=== PATIENT | male | born 1975 | race Caucasian/White ===

== ENCOUNTER 2020-11-28 22:14 | Inpatient (IN) | payer SELFPAY ==
[2020-11-28] MEDS ORDERED: Ketorolac 60 MG/2 ML SDV IM ONE (22:26)
[2020-11-28] MEDS ORDERED: Sodium Chloride 0.9% 10 ML Syringe FLUSH PRN (22:29)
[2020-11-28] MEDS ORDERED: Ketorolac 30 MG/ML SDV IVPUSH ONE (22:30)
--- NOTE | 2020-11-28 22:35 | EDM.PDOC ---
ED HPI GENERAL MEDICAL PROBLEM - General Chief Complaint: ENT Problem Stated Complaint: SORE THROAT/SWOLLEN/GOES INTO EARS Time Seen by Provider: 11/28/20 22:16 Source of Information: Reports: Patient, RN Notes Reviewed History Limitations: Reports: No Limitations - History of Present Illness INITIAL COMMENTS - FREE TEXT/NARRATIVE: Patient is a 45-year-old male presenting to the emergency department with complaints of severe throat pain. He states symptoms began yesterday and has been getting progressively worse since that time. He complains of inability to swallow except for small amounts of liquids. Pain is worse on the right than the left and travels into his right ear. He does still have his tonsils. Denies any nausea vomiting or diarrhea. He has had a fever. States it was 100.0 at home. He has not taken anything for pain. Right Throat Pain Score (Numeric/FACES): 9 - Related Data Allergies Allergy/AdvReac Type Severity Reaction Status Date / Time No Known Allergies Allergy Verified 11/29/20 01:47 Home Meds: Home Meds . [No Known Home Meds] 11/28/20 [History] Past Medical History HEENT History: Reports: Impaired Vision Cardiovascular History: Reports: None Respiratory History: Reports: None Gastrointestinal History: Reports: GERD Genitourinary History: Reports: None Musculoskeletal History: Reports: None Neurological History: Reports: Concussion, Other (See Below) Other Neuro History: tension headaches Psychiatric History: Reports: None Endocrine/Metabolic History: Reports: None Hematologic History: Reports: None Immunologic History: Reports: None Oncologic (Cancer) History: Reports: Malignant Melanoma Dermatologic History: Reports: None - Infectious Disease History Infectious Disease History: Reports: Chicken Pox, Influenza - Past Surgical History HEENT Surgical History: Reports: Oral Surgery GI Surgical History: Reports: None Social & Family History - Family History Family Medical History: No Pertinent Family History - Tobacco Use Tobacco Use Status *Q: Current Every Day Tobacco User Years of Tobacco use: 20 Packs/Tins Daily: 1 - Caffeine Use Caffeine Use: Reports: Energy Drinks - Recreational Drug Use Recreational Drug Use: No ED ROS ENT - Review of Systems Review Of Systems: See Below Constitutional: Reports: Fever, Chills HEENT: Reports: Ear Pain (Right), Throat Pain Respiratory: Reports: No Symptoms. Denies: Shortness of Breath, Cough Cardiovascular: Reports: No Symptoms Endocrine: Reports: No Symptoms GI/Abdominal: Reports: No Symptoms : Reports: No Symptoms Musculoskeletal: Reports: No Symptoms Skin: Reports: No Symptoms Neurological: Reports: No Symptoms Psychiatric: Reports: No Symptoms Hematologic/Lymphatic: Reports: No Symptoms Immunologic: Reports: No Symptoms ED EXAM, ENT - Physical Exam Exam: See Below General Appearance: Alert, Mild Distress Mouth/Throat: Muffled Voice, Pharyngeal Erythema, Throat Pain, Tonsillar Erythema, Tonsillar Swelling Neck: Normal Inspection, Supple, Lymphadenopathy (R) Respiratory/Chest: No Respiratory Distress, Lungs Clear, Normal Breath Sounds, No Accessory Muscle Use, Chest Non-Tender Cardiovascular: Normal Peripheral Pulses, Regular Rate, Rhythm, No Edema, No Gallop, No JVD, No Murmur, No Rub Neurological: Alert, Oriented, CN II-XII Intact, Normal Cognition, Normal Gait, Normal Reflexes, No Motor/Sensory Deficits Psychiatric: Normal Affect, Normal Mood Skin: Warm, Dry, Intact, Normal Color, No Rash Course - Vital Signs Last Recorded V/S: Last Vital Signs Temp 98.8 F 11/29/20 15:34 Pulse 82 11/29/20 15:34 Resp 16 11/29/20 15:34 BP 134/88 11/29/20 15:34 Pulse Ox 98 11/29/20 15:34 - Orders/Labs/Meds Orders: Active Orders 24 hr Category Date Time Status Peripheral IV Care [RC] Q2HR Care 11/28/20 22:30 Active Clindamycin Phosphate in D5W [Cleocin in D5W 900 MG/50 Med 11/28/20 23:45 Active ML] 900 mg Premix Bag 1 bag IV Q8H Sodium Chloride 0.9% [Saline Flush] Med 11/28/20 22:29 Active 10 ml FLUSH ASDIRECTED PRN Peripheral IV Insertion Adult [OM.PC] Stat Oth 11/28/20 22:29 Ordered Medication Orders Benzocaine/Menthol (Cepacol Sore Throat) 1 lozenge MUCMEM Q2H PRN PRN Reason: Sore Throat Hydromorphone HCl (Dilaudid) 0.5 mg IVPUSH Q4H PRN PRN Reason: Pain Last Admin: 11/29/20 14:52 Dose: 0.5 mg Documented by: Admin: 11/29/20 09:27 Dose: 0.5 mg Documented by: Admin: 11/29/20 04:11 Dose: 0.5 mg Documented by: IVISKAMB Clindamycin Phosphate 900 mg/ (Premix) 50 mls @ 100 mls/hr IV Q8H [facility] Last Admin: 11/29/20 14:52 Dose: 100 mls/hr Documented by: Infusion: 11/29/20 08:53 Dose: 100 mls/hr Documented by: Admin: 11/29/20 08:23 Dose: 100 mls/hr Documented by: Infusion: 11/29/20 01:06 Dose: 100 mls/hr Documented by: Admin: 11/29/20 00:36 Dose: 100 mls/hr Documented by: SUKHWINDER Ceftriaxone Sodium 1 gm/ (Sodium Chloride) 100 mls @ 200 mls/hr IV Q24H [facility] Lactated Ringer's (Ringers, Lactated) 1,000 mls @ 150 mls/hr IV ASDIRECTED [facility] Last Admin: 11/29/20 11:07 Dose: 150 mls/hr Documented by: LIANE Ketorolac Tromethamine (Toradol) 30 mg IVPUSH Q6H PRN PRN Reason: Pain (moderate 4-6) Miscellaneous Information (Remove Patch) 1 ea TRDERM DAILY [facility] Nicotine (Habitrol) 14 mg TRDERM DAILY [facility] Last Admin: 11/29/20 09:27 Dose: Not Given Documented by: LIANE Ondansetron HCl (Zofran) 4 mg IVPUSH Q6H PRN PRN Reason: Nausea Sodium Chloride (Saline Flush) 10 ml FLUSH ASDIRECTED PRN PRN Reason: Keep Vein Open Last Admin: 11/28/20 22:42 Dose: 10 ml Documented by: SUKHWINDER Labs: Laboratory Tests 11/28/20 11/28/20 11/28/20 Range/Units 22:20 22:36 22:36 WBC 15.00 H (4.23-9.07) K/mm3 RBC 4.87 (4.63-6.08) M/mm3 Hgb 16.1 (13.7-17.5) gm/dl Hct 48.7 (40.1-51.0) % MCV 100.0 H (79.0-92.2) fl MCH 33.1 H (25.7-32.2) pg MCHC 33.1 (32.2-35.5) g/dl RDW Std Deviation 47.5 H (35.1-43.9) fL Plt Count 268 (163-337) K/mm3 MPV 9.4 (9.4-12.3) fl Neut % (Auto) 82.7 H (34.0-67.9) % Lymph % (Auto) 7.3 L (21.8-53.1) % [place] % (Auto) 9.1 (5.3-12.2) % Eos % (Auto) 0.6 L (0.8-7.0) Baso % (Auto) 0.1 (0.1-1.2) % Neut # (Auto) 12.39 H (1.78-5.38) K/mm3 Lymph # (Auto) 1.10 L (1.32-3.57) K/mm3 [place] # (Auto) 1.37 H (0.30-0.82) K/mm3 Eos # (Auto) 0.09 (0.04-0.54) K/mm3 Baso # (Auto) 0.02 (0.01-0.08) K/mm3 Manual Slide Review Abnormal smear Sodium 139 (136-145) mEq/L Potassium 3.4 L (3.5-5.1) mEq/L Chloride 101 (98-107) mEq/L Carbon Dioxide 24 (21-32) mEq/L Anion Gap 17.4 H (5-15) BUN 8 (7-18) mg/dL Creatinine 1.2 (0.7-1.3) mg/dL Est Cr Clr Drug Dosing 76.00 mL/min Estimated GFR (MDRD) > 60 (>60) mL/min BUN/Creatinine Ratio 6.7 L (14-18) Glucose 173 H (74-106) mg/dL Calcium 9.0 (8.5-10.1) mg/dL Total Bilirubin 0.8 (0.2-1.0) mg/dL AST 19 (15-37) U/L ALT 37 (16-63) U/L Alkaline Phosphatase 80 (46-116) U/L C-Reactive Protein 13.0 H* (<1.0) mg/dL Total Protein 7.4 (6.4-8.2) g/dl Albumin 3.7 (3.4-5.0) g/dl Globulin 3.7 gm/dL Albumin/Globulin Ratio 1.0 (1-2) Group A Strep (PCR) Not detected (NOT DETECT) Meds: Medications Generic Name Dose Route Start Last Admin Trade Name Freq PRN Reason Stop Dose Admin Benzocaine/Menthol 1 lozenge 11/29/20 09:01 Cepacol Sore Throat MUCMEM Q2H PRN Sore Throat Hydromorphone HCl 0.5 mg 11/29/20 03:50 11/29/20 14:52 Dilaudid IVPUSH 0.5 mg Q4H PRN Administration Pain Clindamycin Phosphate 900 mg/ 50 mls @ 100 mls/hr 11/28/20 23:45 11/29/20 14:52 Premix IV 100 mls/hr Q8H SEGUNDO Administration Ceftriaxone Sodium 1 gm/ 100 mls @ 200 mls/hr 11/30/20 00:00 Sodium Chloride IV Q24H SEGUNDO Lactated Ringer's 1,000 mls @ 150 mls/hr 11/29/20 09:15 11/29/20 11:07 Ringers, Lactated IV 150 mls/hr ASDIRECTED SEGUNDO Administration Ketorolac Tromethamine 30 mg 11/29/20 11:09 Toradol IVPUSH Q6H PRN Pain (moderate 4-6) Miscellaneous Information 1 ea 11/30/20 09:00 Remove Patch TRDERM DAILY SEGUNDO Nicotine 14 mg 11/29/20 09:00 11/29/20 09:27 Habitrol TRDERM Not Given DAILY SEGUNDO Ondansetron HCl 4 mg 11/29/20 03:50 Zofran IVPUSH Q6H PRN Nausea Sodium Chloride 10 ml 11/28/20 22:29 11/28/20 22:42 Saline Flush FLUSH 10 ml ASDIRECTED PRN Administration Keep Vein Open Discontinued Medications Generic Name Dose Route Start Last Admin Trade Name Freq PRN Reason Stop Dose Admin Hydromorphone HCl 0.5 mg 11/28/20 23:41 11/28/20 23:58 Dilaudid IVPUSH 11/28/20 23:42 0.5 mg ONETIME ONE Administration Sodium Chloride 1,000 mls @ 100 mls/hr 11/28/20 23:38 11/28/20 23:58 Normal Saline IV 11/29/20 09:37 100 mls/hr NOW STA Administration Ceftriaxone Sodium 1 gm/ 100 mls @ 200 mls/hr 11/28/20 23:38 11/29/20 00:02 Sodium Chloride IV 11/29/20 00:07 200 mls/hr ONETIME ONE Administration Influenza Virus Vaccine 1 each 11/29/20 01:28 Pharmacy To Dose - Influenza Vaccine IM 11/29/20 01:29 ONETIME ONE Influenza Virus Vaccine 60 mcg 11/29/20 01:30 Fluzone Quad [id number] Syringe IM 11/29/20 01:31 .ONCE ONE Ketorolac Tromethamine 60 mg 11/28/20 22:26 Toradol IM 11/28/20 22:27 ONETIME ONE Ketorolac Tromethamine 30 mg 11/28/20 22:30 11/28/20 22:41 Toradol IVPUSH 11/28/20 22:31 30 mg ONETIME ONE Administration Nicotine 21 mg 11/29/20 09:00 11/29/20 10:32 Habitrol TRDERM Not Given DAILY SEGUNDO - Re-Assessments/Exams Free Text/Narrative Re-Assessment/Exam: 11/28/20 23:41 Hematology significant for WBC elevated at 15.0 with a left shift but no bandemia. Potassium 3.4, anion gap 17.4, CRP 13.0. Group A strep was negative. CT scan of the soft tissue of the neck shows findings suspicious for bilateral tonsillitis right greater than left. No supra circumscribed left tonsillar region collection seen. There may be a very small 9 mm tonsillar/peritonsillar abscess on the right. See above. Case discussed with hospitalist, Dr. Burleson. He has accepted the patient for admission. Recommend starting clindamycin and Rocephin. I will write bridge orders for admission. Departure - Departure Time of Disposition: 23:40 Disposition: Admitted As Inpatient 67 Condition: Good Clinical Impression: Peritonsillar abscess - Discharge Information Sepsis Event Note (ED) - Evaluation Sepsis Screening Result: No Definite Risk - My Orders Last 24 Hours: My Active Orders 11/28/20 22:29 Sodium Chloride 0.9% [Saline Flush] 10 ml FLUSH ASDIRECTED PRN Peripheral IV Insertion Adult [OM.PC] Stat 11/28/20 22:30 Peripheral IV Care [RC] Q2HR 11/28/20 23:45 Clindamycin Phosphate in D5W [Cleocin in D5W 900 MG/50 ML] 900 mg Premix Bag 1 bag IV Q8H - Assessment/Plan Last 24 Hours: My Active Orders 11/28/20 22:29 Sodium Chloride 0.9% [Saline Flush] 10 ml FLUSH ASDIRECTED PRN Peripheral IV Insertion Adult [OM.PC] Stat 11/28/20 22:30 Peripheral IV Care [RC] Q2HR 11/28/20 23:45 Clindamycin Phosphate in D5W [Cleocin in D5W 900 MG/50 ML] 900 mg Premix Bag 1 bag IV Q8H
[2020-11-28] MEDS ORDERED: cefTRIAXone 1 GM in Sodium Chloride 0.9% 100 ML IV ONE (23:38)
[2020-11-28] MEDS ORDERED: Sodium Chloride 0.9% 1,000 ML IV STA (23:38)
[2020-11-28] MEDS ORDERED: HYDROmorphone 0.5 MG/0.5 ML Syringe IVPUSH ONE (23:41)
[2020-11-29] MEDS: Clindamycin Phosphate in D5W 900 MG in Premix Bag 1 BAG IV SCH ×6 (00:36→14:52)
[2020-11-29] MEDS ORDERED: FLU VACC QS2020-21(6MOS UP)/PF 60 MCG/0.5 ML SYRINGE IM ONE (01:30)
[2020-11-29] MEDS ORDERED: Ondansetron 4 MG/2 ML SDV IVPUSH PRN (03:50)
[2020-11-29] MEDS: HYDROmorphone 0.5 MG/0.5 ML Syringe IVPUSH PRN ×4 (04:11→22:24)
--- NOTE | 2020-11-29 07:16 | PCM.HP.2 ---
H&P History of Present Illness - General Date of Service: 11/29/20 Admit Problem/Dx: Admission Diagnosis/Problem Admission Diagnosis/Problem Peritonsillar abscess Source of Information: Patient, Old Records, Provider, RN, RN Notes Reviewed History Limitations: Reports: No Limitations - History of Present Illness Initial Comments - Free Text/Narative: This is a 45-year-old male who presents to the emergency department in the late hours of 11/28/2020 with severe throat pain. He reports symptoms began the day prior and has been getting progressively worse. He states he is only able to swallow small amounts of liquids. Reports pain is worse on the right and travels into his right ear however pain is bilateral. He does still have his tonsils. Reports he is had a fever of 100.0 at home. Denies any nausea, vomiting, diarrhea, or having taken anything prior for pain. In the ED temp is 9.9. Pulse 115. Respirations 18. Blood pressure 142/99. Pulse ox 97% on room air. Labs are obtained showing a leukocytosis of 15.00. Hemoglobin of 16.1. Platelets of 268,000. Neutrophils are elevated at 12.39. Sodium is 139. Potassium 3.4. Anion gap is 17.4. BUN is 8. Creatinine 1.2. GFR greater than 60. Glucose is 173. Calcium 9.0. Bilirubin 0.8. AST is 19, ALT 37, alkaline phosphatase 80. CRP is 13.0. Albumin is 3.7. Group A strep is negative. CT scan of soft tissue of the neck is suspicious for bilateral tonsillitis right greater than left. No supra circumscribed left tonsillar region collection seen. There may be a very small 9 mm tonsillar/peritonsillar abscess on the right. See above. He is given Toradol for pain. He started on Rocephin and clindamycin. He carries a history of GERD, headaches, malignant melanoma, and current tobacco use. He is a full code. He does not have a PCP. He is subsequently admitted to the medical floor inpatient for management of his throat pain and peritonsillar abscess. Right Throat Pain Score (Numeric/FACES): 9 - Related Data Allergies/Adverse Reactions: Allergies Allergy/AdvReac Type Severity Reaction Status Date / Time No Known Allergies Allergy Verified 11/29/20 01:47 Home Medications: Home Meds . [No Known Home Meds] 11/28/20 [History] Past Medical History HEENT History: Reports: Impaired Vision Cardiovascular History: Reports: None Respiratory History: Reports: None Gastrointestinal History: Reports: GERD Genitourinary History: Reports: None Musculoskeletal History: Reports: None Neurological History: Reports: Concussion, Other (See Below) Other Neuro History: tension headaches Psychiatric History: Reports: None Endocrine/Metabolic History: Reports: None Hematologic History: Reports: None Immunologic History: Reports: None Oncologic (Cancer) History: Reports: Malignant Melanoma Dermatologic History: Reports: None - Infectious Disease History Infectious Disease History: Reports: Chicken Pox, Influenza - Past Surgical History HEENT Surgical History: Reports: Oral Surgery GI Surgical History: Reports: None Social & Family History - Family History Family Medical History: No Pertinent Family History - Tobacco Use Tobacco Use Status *Q: Light Tobacco User Years of Tobacco use: 20 Packs/Tins Daily: 1 Used Tobacco, but Quit: No Second Hand Smoke Exposure: No - Caffeine Use Caffeine Use: Reports: Coffee - Alcohol Use Days Per Week of Alcohol Use: 2 Number of Drinks Per Day: 3 Total Drinks Per Week: 6 - Recreational Drug Use Recreational Drug Use: No H&P Review of Systems - Review of Systems: Review Of Systems: See Below General: Reports: Fever, Chills. Denies: Malaise, Weakness, Fatigue HEENT: Reports: Ear Pain (right ), Sore Throat. Denies: Headaches Pulmonary: Reports: No Symptoms. Denies: Shortness of Breath, Wheezing, Pleuritic Chest Pain, Cough, Sputum Cardiovascular: Reports: No Symptoms. Denies: Chest Pain, Palpitations, Dyspnea on Exertion, Lightheadedness Gastrointestinal: Reports: Difficulty Swallowing (2/2 pain ). Denies: Abdominal Pain, Constipation, Diarrhea, Nausea, Vomiting Genitourinary: Reports: No Symptoms. Denies: Dysuria Musculoskeletal: Reports: No Symptoms Skin: Reports: No Symptoms. Denies: Cyanosis Psychiatric: Reports: No Symptoms. Denies: Confusion Neurological: Reports: No Symptoms. Denies: Difficulty Walking, Gait Disturbance Hematologic/Lymphatic: Reports: No Symptoms. Denies: Anemia Immunologic: Reports: No Symptoms Exam - Exam Exam: See Below - Vital Signs Vital Signs: Last Vital Signs Temp 98.2 F 11/29/20 04:00 Pulse 82 11/29/20 04:00 Resp 16 11/29/20 04:00 BP 136/89 11/29/20 04:00 Pulse Ox 96 11/29/20 04:00 Weight: 197 lb 8 oz - Exam Quality Assessment: No: Supplemental Oxygen, DVT Prophylaxis (VTE of 1 ) General: Alert, Oriented, Cooperative. No: Mild Distress (Althought does look uncomfortable when speaking ) HEENT: Conjunctiva Clear, EACs Clear, Other (Noted muffled voice with pharyngeal erythema and tonsillar swelling. Tonsils are erythematous as well.). No: Mucosa Moist & [place] (slightly dry ) Neck: Supple, Trachea Midline, Full Range of Motion, Lymphadenopathy Lungs: Clear to Auscultation, Normal Respiratory Effort Cardiovascular: Regular Rate, Regular Rhythm GI/Abdominal Exam: Normal Bowel Sounds, Soft, Non-Tender, No Distention (Male) Exam: Deferred Rectal (Males) Exam: Deferred Back Exam: Normal Inspection, Full Range of Motion Extremities: Normal Inspection, Normal Range of Motion, Non-Tender, No Pedal Edema, Normal Capillary Refill Skin: Warm, Dry, Intact Neurological: Cranial Nerves Intact (Grossly ) Neuro Extensive - Mental Status: Alert, Oriented x3, Normal Mood/Affect - Patient Data Lab Results Last 24 hrs: Laboratory Results - last 24 hr 11/28/20 11/28/20 11/28/20 Range/Units 22:20 22:36 22:36 WBC 15.00 H (4.23-9.07) K/mm3 RBC 4.87 (4.63-6.08) M/mm3 Hgb 16.1 (13.7-17.5) gm/dl Hct 48.7 (40.1-51.0) % MCV 100.0 H (79.0-92.2) fl MCH 33.1 H (25.7-32.2) pg MCHC 33.1 (32.2-35.5) g/dl RDW Std Deviation 47.5 H (35.1-43.9) fL Plt Count 268 (163-337) K/mm3 MPV 9.4 (9.4-12.3) fl Neut % (Auto) 82.7 H (34.0-67.9) % Lymph % (Auto) 7.3 L (21.8-53.1) % [place] % (Auto) 9.1 (5.3-12.2) % Eos % (Auto) 0.6 L (0.8-7.0) Baso % (Auto) 0.1 (0.1-1.2) % Neut # (Auto) 12.39 H (1.78-5.38) K/mm3 Lymph # (Auto) 1.10 L (1.32-3.57) K/mm3 [place] # (Auto) 1.37 H (0.30-0.82) K/mm3 Eos # (Auto) 0.09 (0.04-0.54) K/mm3 Baso # (Auto) 0.02 (0.01-0.08) K/mm3 Manual Slide Review Abnormal smear Sodium 139 (136-145) mEq/L Potassium 3.4 L (3.5-5.1) mEq/L Chloride 101 (98-107) mEq/L Carbon Dioxide 24 (21-32) mEq/L Anion Gap 17.4 H (5-15) BUN 8 (7-18) mg/dL Creatinine 1.2 (0.7-1.3) mg/dL Est Cr Clr Drug Dosing 76.00 mL/min Estimated GFR (MDRD) > 60 (>60) mL/min BUN/Creatinine Ratio 6.7 L (14-18) Glucose 173 H (74-106) mg/dL Calcium 9.0 (8.5-10.1) mg/dL Total Bilirubin 0.8 (0.2-1.0) mg/dL AST 19 (15-37) U/L ALT 37 (16-63) U/L Alkaline Phosphatase 80 (46-116) U/L C-Reactive Protein 13.0 H* (<1.0) mg/dL Total Protein 7.4 (6.4-8.2) g/dl Albumin 3.7 (3.4-5.0) g/dl Globulin 3.7 gm/dL Albumin/Globulin Ratio 1.0 (1-2) SARS-CoV-2 RNA (PABLITO) (NEGATIVE) Group A Strep (PCR) Not detected (NOT DETECT) 11/29/20 Range/Units 00:00 WBC (4.23-9.07) K/mm3 RBC (4.63-6.08) M/mm3 Hgb (13.7-17.5) gm/dl Hct (40.1-51.0) % MCV (79.0-92.2) fl MCH (25.7-32.2) pg MCHC (32.2-35.5) g/dl RDW Std Deviation (35.1-43.9) fL Plt Count (163-337) K/mm3 MPV (9.4-12.3) fl Neut % (Auto) (34.0-67.9) % Lymph % (Auto) (21.8-53.1) % [place] % (Auto) (5.3-12.2) % Eos % (Auto) (0.8-7.0) Baso % (Auto) (0.1-1.2) % Neut # (Auto) (1.78-5.38) K/mm3 Lymph # (Auto) (1.32-3.57) K/mm3 [place] # (Auto) (0.30-0.82) K/mm3 Eos # (Auto) (0.04-0.54) K/mm3 Baso # (Auto) (0.01-0.08) K/mm3 Manual Slide Review Sodium (136-145) mEq/L Potassium (3.5-5.1) mEq/L Chloride (98-107) mEq/L Carbon Dioxide (21-32) mEq/L Anion Gap (5-15) BUN (7-18) mg/dL Creatinine (0.7-1.3) mg/dL Est Cr Clr Drug Dosing mL/min Estimated GFR (MDRD) (>60) mL/min BUN/Creatinine Ratio (14-18) Glucose (74-106) mg/dL Calcium (8.5-10.1) mg/dL Total Bilirubin (0.2-1.0) mg/dL AST (15-37) U/L ALT (16-63) U/L Alkaline Phosphatase (46-116) U/L C-Reactive Protein (<1.0) mg/dL Total Protein (6.4-8.2) g/dl Albumin (3.4-5.0) g/dl Globulin gm/dL Albumin/Globulin Ratio (1-2) SARS-CoV-2 RNA (PABLITO) Negative (NEGATIVE) Group A Strep (PCR) (NOT DETECT) Result Diagrams: 11/28/20 22:36 11/28/20 22:36 Sepsis Event Note - Evaluation Sepsis Screening Result: No Definite Risk - Focused Exam Vital Signs: Vital Signs Temp Temp Pulse Pulse Resp BP BP 11/29/20 04:00 98.2 F 82 16 136/89 11/29/20 02:06 79 11/29/20 01:15 98.1 F 138/88 11/28/20 22:23 99.9 F 115 H 18 142/99 H Pulse Ox 11/29/20 04:00 96 11/29/20 02:06 98 11/29/20 01:15 11/28/20 22:23 97 - Problem List (1) GERD (gastroesophageal reflux disease) SNOMED Code(s): 518590103 ICD Code: K21.9 - GASTRO-ESOPHAGEAL REFLUX DISEASE WITHOUT ESOPHAGITIS Status: Chronic Priority: Low Current Visit: No Qualifiers: Esophagitis presence: esophagitis presence not specified Qualified Code(s): K21.9 - Gastro-esophageal reflux disease without esophagitis (2) History of malignant melanoma SNOMED Code(s): 528515939 ICD Code: Z85.820 - PERSONAL HISTORY OF MALIGNANT MELANOMA OF SKIN Status: Chronic Priority: Low Current Visit: No (3) Current smoker SNOMED Code(s): 56791513 ICD Code: F17.200 - NICOTINE DEPENDENCE, UNSPECIFIED, UNCOMPLICATED Status: Chronic Priority: Medium Current Visit: Yes (4) Peritonsillar abscess SNOMED Code(s): 68688633 ICD Code: J36 - PERITONSILLAR ABSCESS Status: Acute Priority: High Current Visit: Yes Problem List Initiated/Reviewed/Updated: Yes Orders Last 24hrs: Active Orders 24 hr Category Date Time Status Patient Status [ADT] Routine ADT 11/28/20 23:43 Active Activity as Tolerated [RC] .Routine Care 11/29/20 02:30 Active Influenza Vaccine Charge [RC] .DISCHARGE Care 11/29/20 01:29 Active Peripheral IV Care [RC] Q2HR Care 11/28/20 22:30 Active Full Liquid Diet [DIET] Diet 11/29/20 Breakfast Active Soft Tissue Neck w Cont [CT] Stat Exams 11/28/20 22:29 Taken Clindamycin Phosphate in D5W [Cleocin in D5W 900 MG/50 Med 11/28/20 23:45 Active ML] 900 mg Premix Bag 1 bag IV Q8H HYDROmorphone [Dilaudid] Med 11/29/20 03:50 Active 0.5 mg IVPUSH Q4H PRN Ondansetron [Zofran] Med 11/29/20 03:50 Active 4 mg IVPUSH Q6H PRN Sodium Chloride 0.9% [Normal Saline] 1,000 ml Med 11/28/20 23:38 Active IV NOW Sodium Chloride 0.9% [Saline Flush] Med 11/28/20 22:29 Active 10 ml FLUSH ASDIRECTED PRN cefTRIAXone [Rocephin] 1 gm Med 11/30/20 00:00 Active Sodium Chloride 0.9% [Normal Saline] 100 ml IV Q24H Peripheral IV Insertion Adult [OM.PC] Stat Oth 11/28/20 22:29 Ordered Code Status [Resuscitation Status] Routine Resus Stat 11/29/20 03:47 Ordered Medication Orders Hydromorphone HCl (Dilaudid) 0.5 mg IVPUSH Q4H PRN PRN Reason: Pain Last Admin: 11/29/20 04:11 Dose: 0.5 mg Documented by: FRANCISCO JAVIER Sodium Chloride (Normal Saline) 1,000 mls @ 100 mls/hr IV NOW STA Stop: 11/29/20 09:37 Last Admin: 11/28/20 23:58 Dose: 100 mls/hr Documented by: SUKHWINDER Clindamycin Phosphate 900 mg/ (Premix) 50 mls @ 100 mls/hr IV Q8H SEGUNDO Last Admin: 11/29/20 00:36 Dose: 100 mls/hr Documented by: SUKHWINDER Ceftriaxone Sodium 1 gm/ (Sodium Chloride) 100 mls @ 200 mls/hr IV Q24H [facility] Ondansetron HCl (Zofran) 4 mg IVPUSH Q6H PRN PRN Reason: Nausea Sodium Chloride (Saline Flush) 10 ml FLUSH ASDIRECTED PRN PRN Reason: Keep Vein Open Last Admin: 11/28/20 22:42 Dose: 10 ml Documented by: SUKHWINDER Assessment/Plan Comment:: Assessment - day of admission 11/29/20 (admitted late 11/28/20) * 45 yo male presents to ED on 11/28/20 with severe throat pain * Pain stared day prior, worse on right radiating into ear and has had fever of 100.0 * Denies GI symptoms * Has both tonsils still * Only able to drink minimal amounts of liquid * Labs in ED: * WBC 15.00 * Hgb 16.1 * PLT 268 * Neutrophils# 12.39 * Sodium 139 * Potassium 3.4 * Anion gap 17.4 * BUN 8, Creatinine 1.2, GFR >60 * Glucose 173 * Bilirubin 0.8 * AST 19, ALT 37, Alk phos 80 * CRP 13.0 * Albumin 3.7 * Group A strep negative * SARS-CoV-2 RNA negative * CT Soft tissue shows: * Bilateral tonsillitis right greater than left. * No supra circumscribed left tonsillar region collection seen. * There may be a small 9 mm tonsillar/peritonsillar abscess on the right. * Started on Clindamycin and Rocephin * Started on IV fluids * Admitted inpatient for management of throat pain 2/2 peritonsillar abscess PLAN: Peritonsillar abscess * Pain medications as ordered * Full liquid diet for now - advance as tolerated * Continue Clindamycin and Rocephin * IV fluids as ordered * Re-check labs tomorrow * Cepacol lozenges as needed * Repeat CT of soft tissue neck as needed Current smoker * Cessation counseling * Nicotine patches * Offer nicotine patches/counseling on discharge GERD (gastroesophageal reflux disease) History of malignant melanoma * No current concerns * No home medications Code status: Full code PCP: None DVT prophylaxis: VTE score of 1 - not indicated Disposition: Admit to hospital floor inpatient for management of throat pain 2/2 peritonsillar abscess. Anticipated LOS 3-4 days. - Mortality Measure Prognosis:: Good
[2020-11-29] MEDS ORDERED: Nicotine 21 MG/24 Hr Patch TRDERM SCH (09:00)
[2020-11-29] MEDS ORDERED: Benzocaine/Cetylpyridinium/Menthol Lozenge MUCMEM PRN (09:01)
--- NOTE | 2020-11-29 09:23 | CT ---
CT neck Technique: Multiple axial sections through the neck were obtained. Intravenous contrast was utilized. Reconstructed coronal and sagittal images were obtained. Comparison: No prior neck imaging is available. Findings: Visualized lung apices show nothing acute. Thyroid gland shows no discrete abnormality. Submandibular salivary glands appear within normal limits. Parotid salivary glands appear within normal limits. Slightly abnormal palatine tonsils are noted. Very minimal low density is seen on the right side measuring approximately 9 mm which may represent early abscess. Scattered mildly enlarged lymph nodes are seen within the neck on both sides. Visualized mastoid sinuses and paranasal sinuses show nothing acute. Scattered disc space narrowing within the cervical spine is seen. Mild kyphosis is noted possibly due to muscle spasm. Prevertebral soft tissues are normal. Epiglottis is normal. Impression: 1. Slightly abnormal tonsils on both sides. Findings are suspicious for bilateral tonsillitis. Questionable very small abscess within the right tonsil measuring about 9 mm. 2. Scattered mildly prominent lymph nodes on both sides of the neck which are likely inflammatory. 3. Degenerative change within the cervical spine. Mild kyphosis is noted possibly due to muscle spasm. 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
[2020-11-29] MEDS: Nicotine 14 MG/24 Hr Patch TRDERM SCH (09:27)
[2020-11-29] MEDS: Lactated Ringers 1,000 ML IV SCH ×2 (11:07→18:28)
[2020-11-29] MEDS ORDERED: Lidocaine 2% Viscous Solution 15 ML Cup PO PRN (18:34)
[2020-11-29] MEDS: Ketorolac 30 MG/ML SDV IVPUSH PRN (18:49)
[2020-11-30] MEDS: Clindamycin Phosphate in D5W 900 MG in Premix Bag 1 BAG IV SCH ×8 (00:17→23:00)
[2020-11-30] MEDS: cefTRIAXone 1 GM in Sodium Chloride 0.9% 100 ML IV SCH ×2 (00:50→23:02)
[2020-11-30] MEDS: Lactated Ringers 1,000 ML IV SCH ×4 (02:10→23:03)
[2020-11-30] MEDS: Ketorolac 30 MG/ML SDV IVPUSH PRN ×3 (05:40→23:03)
--- NOTE | 2020-11-30 07:01 | PCM.PN ---
- General Info Date of Service: 11/30/20 Admission Dx/Problem (Free Text): Admission Diagnosis/Problem Admission Diagnosis/Problem Peritonsillar abscess Subjective Update: In to see Donovan. He is laying in bed and reports he feels quite a bit better today. He is still having some throat pain. We discussed advancing his diet to soft and he can continue with clear liquids or full liquids, but if he decides he wants mashed potatoes or something with more subsidence he can do that as he tolerates. We will continue current treatment plan. Will discontinue IV fluids once intake improves. Labs continue to show improvement. Functional Status: Reports: Pain Controlled, Tolerating Diet (full liquids ), Ambulating, Urinating. Denies: New Symptoms - Review of Systems General: Reports: No Symptoms. Denies: Fever, Weakness, Fatigue, Malaise, Chills HEENT: Reports: Sore Throat (improving ). Denies: Headaches Pulmonary: Reports: No Symptoms. Denies: Shortness of Breath, Cough, Sputum, Wheezing Cardiovascular: Reports: No Symptoms. Denies: Chest Pain, Palpitations, Dyspnea on Exertion, Edema Gastrointestinal: Reports: No Symptoms. Denies: Abdominal Pain, Constipation, Diarrhea, Nausea, Vomiting Genitourinary: Reports: No Symptoms. Denies: Pain Musculoskeletal: Reports: No Symptoms Skin: Reports: No Symptoms. Denies: Cyanosis Neurological: Reports: No Symptoms. Denies: Confusion, Pre-Existing Deficit, Difficulty Walking, Weakness, Gait Disturbance Psychiatric: Reports: No Symptoms - Patient Data Vitals - Most Recent: Last Vital Signs Temp 97.5 F 11/30/20 05:37 Pulse 68 11/30/20 05:37 Resp 14 11/30/20 05:37 BP 118/84 11/30/20 05:37 Pulse Ox 95 11/30/20 05:37 Weight - Most Recent: 201 lb 3.2 oz I&O - Last 24 Hours: Intake & Output 11/29/20 11/30/20 11/30/20 22:59 06:59 14:59 Intake Total 1800 1800 Balance 1800 1800 Med Orders - Current: Current Medications Benzocaine/Menthol (Cepacol Sore Throat) 1 lozenge MUCMEM Q2H PRN PRN Reason: Sore Throat Hydromorphone HCl (Dilaudid) 0.5 mg IVPUSH Q4H PRN PRN Reason: Pain Last Admin: 11/29/20 22:24 Dose: 0.5 mg Documented by: Clindamycin Phosphate 900 mg/ (Premix) 50 mls @ 100 mls/hr IV Q8H [facility] Last Admin: 11/30/20 00:17 Dose: 100 mls/hr Documented by: Ceftriaxone Sodium 1 gm/ (Sodium Chloride) 100 mls @ 200 mls/hr IV Q24H [facility] Last Admin: 11/30/20 00:50 Dose: 200 mls/hr Documented by: Lactated Ringer's (Ringers, Lactated) 1,000 mls @ 150 mls/hr IV ASDIRECTED [facility] Last Admin: 11/30/20 02:10 Dose: 150 mls/hr Documented by: Ketorolac Tromethamine (Toradol) 30 mg IVPUSH Q6H PRN PRN Reason: Pain (moderate 4-6) Last Admin: 11/30/20 05:40 Dose: 30 mg Documented by: Lidocaine HCl (Xylocaine 2% Viscous) 15 ml PO Q4HR PRN PRN Reason: Sore Throat Last Admin: 11/29/20 18:49 Dose: 15 ml Documented by: Miscellaneous Information (Remove Patch) 1 ea TRDERM DAILY [facility] Nicotine (Habitrol) 14 mg TRDERM DAILY [facility] Last Admin: 11/29/20 09:27 Dose: Not Given Documented by: Ondansetron HCl (Zofran) 4 mg IVPUSH Q6H PRN PRN Reason: Nausea Sodium Chloride (Saline Flush) 10 ml FLUSH ASDIRECTED PRN PRN Reason: Keep Vein Open Last Admin: 11/28/20 22:42 Dose: 10 ml Documented by: Discontinued Medications Hydromorphone HCl (Dilaudid) 0.5 mg IVPUSH ONETIME ONE Stop: 11/28/20 23:42 Last Admin: 11/28/20 23:58 Dose: 0.5 mg Documented by: Sodium Chloride (Normal Saline) 1,000 mls @ 100 mls/hr IV NOW STA Stop: 11/29/20 09:37 Last Admin: 11/28/20 23:58 Dose: 100 mls/hr Documented by: Ceftriaxone Sodium 1 gm/ (Sodium Chloride) 100 mls @ 200 mls/hr IV ONETIME ONE Stop: 11/29/20 00:07 Last Admin: 11/29/20 00:02 Dose: 200 mls/hr Documented by: Influenza Virus Vaccine (Pharmacy To Dose - Influenza Vaccine) 1 each IM ONETIME ONE Stop: 11/29/20 01:29 Influenza Virus Vaccine (Fluzone Quad Syringe) 60 mcg IM .ONCE ONE Stop: 11/29/20 01:31 Ketorolac Tromethamine (Toradol) 60 mg IM ONETIME ONE Stop: 11/28/20 22:27 Ketorolac Tromethamine (Toradol) 30 mg IVPUSH ONETIME ONE Stop: 11/28/20 22:31 Last Admin: 11/28/20 22:41 Dose: 30 mg Documented by: Nicotine (Habitrol) 21 mg TRDERM DAILY [facility] Last Admin: 11/29/20 10:32 Dose: Not Given Documented by: - Exam Quality Assessment: No: Supplemental Oxygen, DVT Prophylaxis (Not indicated due to VTE score ) General: Alert, Oriented, Cooperative, No Acute Distress HEENT: Pupils Equal, Pupils Reactive, Mucous Membr. Moist/[place] (Improved), Other (Remains quite erythematous) Neck: Supple Lungs: Clear to Auscultation, Normal Respiratory Effort Cardiovascular: Regular Rate, Regular Rhythm GI/Abdominal Exam: Normal Bowel Sounds, Soft, Non-Tender, No Distention (Male) Exam: Deferred Back Exam: Normal Inspection, Full Range of Motion Extremities: Normal Inspection, Normal Range of Motion, Non-Tender, No Pedal Edema, Normal Capillary Refill Peripheral Pulses: 2+: Radial (L), Radial (R), Dorsalis Pedis (L), Dorsalis Pedis (R) Skin: Warm, Dry, Intact Neurological: No New Focal Deficit Psy/Mental Status: Alert, Normal Affect, Normal Mood Sepsis Event Note - Evaluation Sepsis Screening Result: No Definite Risk - Focused Exam Vital Signs: Vital Signs Temp Pulse Resp BP Pulse Ox 11/30/20 05:37 97.5 F 68 14 118/84 95 11/29/20 22:17 97.9 F 71 16 133/96 H 99 - Problem List & Annotations (1) GERD (gastroesophageal reflux disease) SNOMED Code(s): 758241158 Code(s): K21.9 - GASTRO-ESOPHAGEAL REFLUX DISEASE WITHOUT ESOPHAGITIS Status: Chronic Priority: Low Current Visit: No Qualifiers: Esophagitis presence: esophagitis presence not specified Qualified Code(s): K21.9 - Gastro-esophageal reflux disease without esophagitis (2) History of malignant melanoma SNOMED Code(s): 254817939 Code(s): Z85.820 - PERSONAL HISTORY OF MALIGNANT MELANOMA OF SKIN Status: Chronic Priority: Low Current Visit: No (3) Current smoker SNOMED Code(s): 60555857 Code(s): F17.200 - NICOTINE DEPENDENCE, UNSPECIFIED, UNCOMPLICATED Status: Chronic Priority: Medium Current Visit: Yes (4) Peritonsillar abscess SNOMED Code(s): 70017182 Code(s): J36 - PERITONSILLAR ABSCESS Status: Acute Priority: High Current Visit: Yes - Problem List Review Problem List Initiated/Reviewed/Updated: Yes - My Orders Last 24 Hours: My Active Orders 11/29/20 09:00 Nicotine [Habitrol] 14 mg TRDERM DAILY 11/29/20 09:01 Benzocaine/Cetylpyrd/Menthol [Cepacol Sore Throat] 1 lozenge MUCMEM Q2H PRN 11/29/20 09:15 Lactated Ringers [Ringers, Lactated] 1,000 ml IV ASDIRECTED 11/29/20 11:09 Ketorolac [Toradol] 30 mg IVPUSH Q6H PRN 11/30/20 06:57 BASIC METABOLIC PANEL,BMP [CHEM] Routine CBC WITH AUTO DIFF [HEME] Routine CRP [C-REACTIVE PROTEIN] [CHEM] Routine MAGNESIUM [CHEM] Routine 11/30/20 09:00 Remove Patch 1 ea TRDERM DAILY 12/01/20 05:11 BASIC METABOLIC PANEL,BMP [CHEM] AM CBC WITH AUTO DIFF [HEME] AM CRP [C-REACTIVE PROTEIN] [CHEM] AM MAGNESIUM [CHEM] AM 12/02/20 05:11 BASIC METABOLIC PANEL,BMP [CHEM] AM CBC WITH AUTO DIFF [HEME] AM CRP [C-REACTIVE PROTEIN] [CHEM] AM MAGNESIUM [CHEM] AM 12/03/20 05:11 BASIC METABOLIC PANEL,BMP [CHEM] AM CBC WITH AUTO DIFF [HEME] AM CRP [C-REACTIVE PROTEIN] [CHEM] AM MAGNESIUM [CHEM] AM 12/04/20 05:11 BASIC METABOLIC PANEL,BMP [CHEM] AM CBC WITH AUTO DIFF [HEME] AM CRP [C-REACTIVE PROTEIN] [CHEM] AM MAGNESIUM [CHEM] AM - Assessment Assessment:: Assessment - day of admission 11/29/20 (admitted late 11/28/20) * 45 yo male presents to ED on 11/28/20 with severe throat pain * Pain stared day prior, worse on right radiating into ear and has had fever of 100.0 * Denies GI symptoms * Has both tonsils still * Only able to drink minimal amounts of liquid * Labs in ED: * WBC 15.00 * Hgb 16.1 * PLT 268 * Neutrophils# 12.39 * Sodium 139 * Potassium 3.4 * Anion gap 17.4 * BUN 8, Creatinine 1.2, GFR >60 * Glucose 173 * Bilirubin 0.8 * AST 19, ALT 37, Alk phos 80 * CRP 13.0 * Albumin 3.7 * Group A strep negative * SARS-CoV-2 RNA negative * CT Soft tissue shows: * Bilateral tonsillitis right greater than left. * No supra circumscribed left tonsillar region collection seen. * There may be a small 9 mm tonsillar/peritonsillar abscess on the right. * Started on Clindamycin and Rocephin * Started on IV fluids * Admitted inpatient for management of throat pain 11/27 peritonsillar abscess 11/30/20 * Patient reports pain is improved * Patient's prior hot potato voice has improved * He reports he is able to take in liquid easier now * Discussed diet and we will advance to soft diet and allow patient to order what he feels he can take in * Continue clindamycin and Rocephin * Discontinue IV fluids once patient's intake has improved * Labs today: * WBC 8.09 * hemoglobin 14.2 * platelet 216,000 * neutrophils 5.44 * sodium 141 * potassium 3.9 * anion gap 14.9 * GFR greater than 60 * CRP 11.7 * Continue current treatment plan * Hopeful for discharge in next 1-2 days - Plan Plan:: Peritonsillar abscess * Pain medications as ordered * Advance to soft diet today and allow patient to order what he tolerates * Continue Clindamycin and Rocephin * IV fluids as ordered * Re-check labs tomorrow * Cepacol lozenges as needed * Repeat CT of soft tissue neck as needed Current smoker * Cessation counseling * Nicotine patches * Offer nicotine patches/counseling on discharge GERD (gastroesophageal reflux disease) History of malignant melanoma * No current concerns * No home medications Code status: Full code PCP: None DVT prophylaxis: VTE score of 1 - not indicated Disposition: Admit to hospital floor inpatient for management of throat pain 2/2 peritonsillar abscess. Anticipated LOS 3-4 days.
[2020-11-30] MEDS: Nicotine 14 MG/24 Hr Patch TRDERM SCH (08:39)
[2020-11-30] MEDS: [UNRECOGNIZED DRUG - OTHER] TRDERM SCH (08:39)
[2020-12-01] MEDS: Lactated Ringers 1,000 ML IV SCH ×2 (06:45→13:35)
[2020-12-01] MEDS: [UNRECOGNIZED DRUG - OTHER] TRDERM SCH (08:35)
[2020-12-01] MEDS: Clindamycin Phosphate in D5W 900 MG in Premix Bag 1 BAG IV SCH ×4 (08:35→15:55)
[2020-12-01] MEDS: Nicotine 14 MG/24 Hr Patch TRDERM SCH (08:41)
--- NOTE | 2020-12-01 14:43 | PCM.PN ---
- General Info Date of Service: 12/01/20 Admission Dx/Problem (Free Text): Admission Diagnosis/Problem Admission Diagnosis/Problem Peritonsillar abscess Subjective Update: Patient still complains of sore throat and right-sided neck swelling. He is not able to take regular food. Afebrile WBC 5.68 He is on IV ceftriaxone and clindamycin - Review of Systems Systems Review Comment:: Positive for right-sided neck pain. All other systems were reviewed and negative. - Patient Data Vitals - Most Recent: Last Vital Signs Temp 36.7 C 12/01/20 12:02 Pulse 72 12/01/20 12:02 Resp 20 12/01/20 12:02 BP 140/91 H 12/01/20 12:02 Pulse Ox 100 12/01/20 12:02 Weight - Most Recent: 91.58 kg I&O - Last 24 Hours: Intake & Output 11/30/20 12/01/20 12/01/20 22:59 06:59 14:59 Intake Total 2059 2271 Balance 2059 2271 Lab Results Last 24 Hours: Laboratory Results - last 24 hr 12/01/20 12/01/20 Range/Units 05:42 05:42 WBC 5.68 (4.23-9.07) K/mm3 RBC 4.37 L (4.63-6.08) M/mm3 Hgb 14.5 (13.7-17.5) gm/dl Hct 44.4 (40.1-51.0) % MCV 101.6 H (79.0-92.2) fl MCH 33.2 H (25.7-32.2) pg MCHC 32.7 (32.2-35.5) g/dl RDW Std Deviation 46.2 H (35.1-43.9) fL Plt Count 226 (163-337) K/mm3 MPV 10.0 (9.4-12.3) fl Neut % (Auto) 53.8 (34.0-67.9) % Lymph % (Auto) 26.6 (21.8-53.1) % [place] % (Auto) 12.0 (5.3-12.2) % Eos % (Auto) 7.2 H (0.8-7.0) Baso % (Auto) 0.2 (0.1-1.2) % Neut # (Auto) 3.06 (1.78-5.38) K/mm3 Lymph # (Auto) 1.51 (1.32-3.57) K/mm3 [place] # (Auto) 0.68 (0.30-0.82) K/mm3 Eos # (Auto) 0.41 (0.04-0.54) K/mm3 Baso # (Auto) 0.01 (0.01-0.08) K/mm3 Sodium 144 (136-145) mEq/L Potassium 4.0 (3.5-5.1) mEq/L Chloride 108 H (98-107) mEq/L Carbon Dioxide 28 (21-32) mEq/L Anion Gap 12.0 (5-15) BUN 7 (7-18) mg/dL Creatinine 0.7 (0.7-1.3) mg/dL Est Cr Clr Drug Dosing 95.24 mL/min Estimated GFR (MDRD) > 60 (>60) mL/min BUN/Creatinine Ratio 10.0 L (14-18) Glucose 104 (74-106) mg/dL Calcium 8.2 L (8.5-10.1) mg/dL Magnesium 2.0 (1.8-2.4) mg/dl C-Reactive Protein 7.3 H* (<1.0) mg/dL Med Orders - Current: Current Medications Benzocaine/Menthol (Cepacol Sore Throat) 1 lozenge MUCMEM Q2H PRN PRN Reason: Sore Throat Hydromorphone HCl (Dilaudid) 0.5 mg IVPUSH Q4H PRN PRN Reason: Pain Last Admin: 11/29/20 22:24 Dose: 0.5 mg Documented by: Clindamycin Phosphate 900 mg/ (Premix) 50 mls @ 100 mls/hr IV Q8H [facility] Last Admin: 12/01/20 08:35 Dose: 100 mls/hr Documented by: Ceftriaxone Sodium 1 gm/ (Sodium Chloride) 100 mls @ 200 mls/hr IV Q24H [facility] Last Admin: 11/30/20 23:02 Dose: 200 mls/hr Documented by: Lactated Ringer's (Ringers, Lactated) 1,000 mls @ 80 mls/hr IV ASDIRECTED [facility] Last Admin: 12/01/20 13:35 Dose: 150 mls/hr Documented by: Ketorolac Tromethamine (Toradol) 30 mg IVPUSH Q6H PRN PRN Reason: Pain (moderate 4-6) Last Admin: 11/30/20 23:03 Dose: 30 mg Documented by: Lidocaine HCl (Xylocaine 2% Viscous) 15 ml PO Q4HR PRN PRN Reason: Sore Throat Last Admin: 11/29/20 18:49 Dose: 15 ml Documented by: Miscellaneous Information (Remove Patch) 1 ea TRDERM DAILY [facility] Last Admin: 12/01/20 08:35 Dose: Not Given Documented by: Nicotine (Habitrol) 14 mg TRDERM DAILY [facility] Last Admin: 12/01/20 08:41 Dose: Not Given Documented by: Ondansetron HCl (Zofran) 4 mg IVPUSH Q6H PRN PRN Reason: Nausea Sodium Chloride (Saline Flush) 10 ml FLUSH ASDIRECTED PRN PRN Reason: Keep Vein Open Last Admin: 11/28/20 22:42 Dose: 10 ml Documented by: Discontinued Medications Hydromorphone HCl (Dilaudid) 0.5 mg IVPUSH ONETIME ONE Stop: 11/28/20 23:42 Last Admin: 11/28/20 23:58 Dose: 0.5 mg Documented by: Sodium Chloride (Normal Saline) 1,000 mls @ 100 mls/hr IV NOW STA Stop: 11/29/20 09:37 Last Admin: 11/28/20 23:58 Dose: 100 mls/hr Documented by: Ceftriaxone Sodium 1 gm/ (Sodium Chloride) 100 mls @ 200 mls/hr IV ONETIME ONE Stop: 11/29/20 00:07 Last Admin: 11/29/20 00:02 Dose: 200 mls/hr Documented by: Influenza Virus Vaccine (Pharmacy To Dose - Influenza Vaccine) 1 each IM ONETIME ONE Stop: 11/29/20 01:29 Influenza Virus Vaccine (Fluzone Quad [id number] Syringe) 60 mcg IM .ONCE ONE Stop: 11/29/20 01:31 Ketorolac Tromethamine (Toradol) 60 mg IM ONETIME ONE Stop: 11/28/20 22:27 Last Admin: 11/30/20 21:33 Dose: Not Given Documented by: Ketorolac Tromethamine (Toradol) 30 mg IVPUSH ONETIME ONE Stop: 11/28/20 22:31 Last Admin: 11/28/20 22:41 Dose: 30 mg Documented by: Nicotine (Habitrol) 21 mg TRDERM DAILY [facility] Last Admin: 11/29/20 10:32 Dose: Not Given Documented by: - Exam Physical Findings Comments:: General: Cooperative, No Acute Distress HEENT: Pupils Equal, Pupils Reactive, Mucous Membr. Moist/[place] (Improved), Other (Remains quite erythematous) Neck: Supple, right submandibular and right sided upper neck edema and tenderne ss Lungs: Clear to Auscultation, Normal Respiratory Effort Cardiovascular: Regular Rate, Regular Rhythm GI/Abdominal Exam: Normal Bowel Sounds, Soft, Non-Tender, No Distention (Male) Exam: Deferred Back Exam: Normal Inspection, Full Range of Motion Extremities: Normal Inspection, Normal Range of Motion, Non-Tender, No Pedal Edema, Normal Capillary Refill Peripheral Pulses: 2+: Radial (L), Radial (R), Dorsalis Pedis (L), Dorsalis Pedis (R) Skin: Warm, Dry, Intact Neurological: A+O x 3, no neurological deficits Psy/Mental Status: Alert, Normal Affect, Normal Mood Sepsis Event Note - Evaluation Sepsis Screening Result: No Definite Risk - Focused Exam Vital Signs: Vital Signs Temp Pulse Resp BP Pulse Ox 12/01/20 12:02 36.7 C 72 20 140/91 H 100 12/01/20 07:46 36.6 C 64 18 129/89 97 12/01/20 04:45 36.8 C 60 12 133/95 H 97 - Problem List Review Problem List Initiated/Reviewed/Updated: Yes - My Orders Last 24 Hours: My Active Orders 12/01/20 14:31 Soft Tissue Neck w Cont [CT] Stat 12/02/20 05:00 CBC WITH AUTO DIFF [HEME] DAILY CMP [COMPREHENSIVE METABOLIC PN,CMP] [CHEM] DAILY 12/03/20 05:00 CBC WITH AUTO DIFF [HEME] DAILY CMP [COMPREHENSIVE METABOLIC PN,CMP] [CHEM] DAILY 12/04/20 05:00 CBC WITH AUTO DIFF [HEME] DAILY CMP [COMPREHENSIVE METABOLIC PN,CMP] [CHEM] DAILY - Assessment Assessment:: Assessment - day of admission 11/29/20 (admitted late 11/28/20) * 45 yo male presents to ED on 11/28/20 with severe throat pain * Pain stared day prior, worse on right radiating into ear and has had fever of 100.0 * Denies GI symptoms * Has both tonsils still * Only able to drink minimal amounts of liquid * Labs in ED: * WBC 15.00 * Hgb 16.1 * PLT 268 * Neutrophils# 12.39 * Sodium 139 * Potassium 3.4 * Anion gap 17.4 * BUN 8, Creatinine 1.2, GFR >60 * Glucose 173 * Bilirubin 0.8 * AST 19, ALT 37, Alk phos 80 * CRP 13.0 * Albumin 3.7 * Group A strep negative * SARS-CoV-2 RNA negative * CT Soft tissue shows: * Bilateral tonsillitis right greater than left. * No supra circumscribed left tonsillar region collection seen. * There may be a small 9 mm tonsillar/peritonsillar abscess on the right. * Started on Clindamycin and Rocephin * Started on IV fluids * Admitted inpatient for management of throat pain 11/27 peritonsillar abscess 11/30/20 * Patient reports pain is improved * Patient's prior hot potato voice has improved * He reports he is able to take in liquid easier now * Discussed diet and we will advance to soft diet and allow patient to order what he feels he can take in * Continue clindamycin and Rocephin * Discontinue IV fluids once patient's intake has improved * Labs today: * WBC 8.09 * hemoglobin 14.2 * platelet 216,000 * neutrophils 5.44 * sodium 141 * potassium 3.9 * anion gap 14.9 * GFR greater than 60 * CRP 11.7 * Continue current treatment plan * Hopeful for discharge in next 1-2 days 12/01/20 * Patient still complains of pain from upper right-sided neck * Not able to take regular food * Afebrile * WBC 5.68 * Repeat CT of neck * IV fluid * Continue ceftriaxone and clindamycin - Plan Plan:: Peritonsillar abscess * Pain medications as ordered * Advance to soft diet today and allow patient to order what he tolerates * Continue Clindamycin and Rocephin * IV fluids as ordered * Re-check labs tomorrow * Cepacol lozenges as needed * Repeat CT of soft tissue neck today Current smoker * Cessation counseling * Nicotine patches * Offer nicotine patches/counseling on discharge GERD (gastroesophageal reflux disease) History of malignant melanoma * No current concerns * No home medications Code status: Full code PCP: None DVT prophylaxis: Lovenox 40 mg subcutaneous daily Disposition: Admit to hospital floor inpatient for management of throat pain 2/2 peritonsillar abscess. Anticipated LOS 3-4 days.
[2020-12-01] MEDS ORDERED: Enoxaparin 40 MG/0.4 ML Syringe SUBCUT SCH (15:00)
[2020-12-01] MEDS ORDERED: Lactated Ringers 1,000 ML IV SCH (15:00)
[2020-12-01] MEDS ORDERED: Iopamidol 612 MG/ML 100 ML Bottle IVPUSH ONE (15:20)
[2020-12-01] MEDS ORDERED: Sodium Chloride 0.9% 10 ML Syringe FLUSH PRN (15:20)
--- NOTE | 2020-12-01 16:18 | CT ---
CT neck Technique: Multiple axial sections through the neck were obtained. Reconstructed coronal and sagittal images were obtained. Comparison: Prior CT neck study of 11/28/20. Findings: Visualized lung apices are clear. Several slightly enlarged lymph nodes are seen on both sides of the neck which are stable. Slightly prominent tonsils are noted but no definite low density finding is seen to indicate a definite abscess. No additional neck abnormality is appreciated. Impression: 1. Slightly prominent tonsils. No definite low density finding is seen to indicate definite abscess. 2. Slightly prominent lymph nodes within the neck which remain stable. Diagnostic code #3
[2020-12-01] MEDS ORDERED: Ibuprofen 400 MG Tab PO PRN (20:11)
[2020-12-01] MEDS: Pantoprazole 40 MG Tab.CR PO SCH (21:21)
[2020-12-02] MEDS: Clindamycin Phosphate in D5W 900 MG in Premix Bag 1 BAG IV SCH ×4 (00:38→08:48)
[2020-12-02] MEDS: cefTRIAXone 1 GM in Sodium Chloride 0.9% 100 ML IV SCH (00:39)
[2020-12-02] MEDS: Pantoprazole 40 MG Tab.CR PO SCH (06:53)
[2020-12-02] MEDS: Nicotine 14 MG/24 Hr Patch TRDERM SCH (08:57)
[2020-12-02] MEDS: [UNRECOGNIZED DRUG - OTHER] TRDERM SCH (08:57)
[2020-12-02] MEDS ORDERED: amLODIPine 5 MG Tab PO SCH (09:00)
--- NOTE | 2020-12-02 10:22 | PCM.DCSUM1 ---
Discharge Summary - Hospital Course Free Text/Narrative:: Assessment - day of admission 11/29/20 (admitted late 11/28/20) * 45 yo male presents to ED on 11/28/20 with severe throat pain * Pain stared day prior, worse on right radiating into ear and has had fever of 100.0 * Denies GI symptoms * Has both tonsils still * Only able to drink minimal amounts of liquid * Labs in ED: * WBC 15.00 * Hgb 16.1 * PLT 268 * Neutrophils# 12.39 * Sodium 139 * Potassium 3.4 * Anion gap 17.4 * BUN 8, Creatinine 1.2, GFR >60 * Glucose 173 * Bilirubin 0.8 * AST 19, ALT 37, Alk phos 80 * CRP 13.0 * Albumin 3.7 * Group A strep negative * SARS-CoV-2 RNA negative * CT Soft tissue shows: * Bilateral tonsillitis right greater than left. * No supra circumscribed left tonsillar region collection seen. * There may be a small 9 mm tonsillar/peritonsillar abscess on the right. * Started on Clindamycin and Rocephin * Started on IV fluids * Admitted inpatient for management of throat pain 11/27 peritonsillar abscess 11/30/20 * Patient reports pain is improved * Patient's prior hot potato voice has improved * He reports he is able to take in liquid easier now * Discussed diet and we will advance to soft diet and allow patient to order what he feels he can take in * Continue clindamycin and Rocephin * Discontinue IV fluids once patient's intake has improved * Labs today: * WBC 8.09 * hemoglobin 14.2 * platelet 216,000 * neutrophils 5.44 * sodium 141 * potassium 3.9 * anion gap 14.9 * GFR greater than 60 * CRP 11.7 * Continue current treatment plan * Hopeful for discharge in next 1-2 days 12/01/20 * Patient still complains of pain from upper right-sided neck * Not able to take regular food * Afebrile * WBC 5.68 * Repeat CT of neck * IV fluid * Continue ceftriaxone and clindamycin - Plan Plan:: Peritonsillar abscess * Pain medications as ordered * Advance to regular diet and allow patient to order what he tolerates * Discontinue iv Clindamycin and Rocephin. He will be discharged on oral Keflex and clindamycin for 7 days. * IV fluids as ordered * Re-check labs * Cepacol lozenges as needed Current smoker * Cessation counseling * Nicotine patches * Offer nicotine patches/counseling on discharge GERD (gastroesophageal reflux disease) History of malignant melanoma * No current concerns * No home medications Today patient feels much better, less pain. Denies headache, dizziness, shortness of breath, chest pain, fever, chills, or changes in vision. Patient tolerates regular food. Vital signs are stable and acceptable. Repeat neck CT -no abscess. Patient will be discharged home today to follow with PCP in 3 days, ENT within 1 week and an oncologist as soon as possible for his malignant melanoma. Oral clindamycin and neck Keflex was prescribed for 7 days. Call PCP for medical issues. HPI Initial Comments: as per Lamin and Dr. Nunes, This is a 45-year-old male who presents to the emergency department in the late hours of 11/28/2020 with severe throat pain. He reports symptoms began the day prior and has been getting progressively worse. He states he is only able to swallow small amounts of liquids. Reports pain is worse on the right and travels into his right ear however pain is bilateral. He does still have his tonsils. Reports he is had a fever of 100.0 at home. Denies any nausea, vomiting, diarrhea, or having taken anything prior for pain. In the ED temp is 9.9. Pulse 115. Respirations 18. Blood pressure 142/99. Pulse ox 97% on room air. Labs are obtained showing a leukocytosis of 15.00. Hemoglobin of 16.1. Platelets of 268,000. Neutrophils are elevated at 12.39. Sodium is 139. Potassium 3.4. Anion gap is 17.4. BUN is 8. Creatinine 1.2. GFR greater than 60. Glucose is 173. Calcium 9.0. Bilirubin 0.8. AST is 19, ALT 37, alkaline phosphatase 80. CRP is 13.0. Albumin is 3.7. Group A strep is negative. CT scan of soft tissue of the neck is suspicious for bilateral tonsillitis right greater than left. No supra circumscribed left tonsillar region collection seen. There may be a very small 9 mm tonsillar/peritonsillar abscess on the right. See above. He is given Toradol for pain. He started on Rocephin and clindamycin. He carries a history of GERD, headaches, malignant melanoma, and current tobacco use. He is a full code. He does not have a PCP. He is subsequently admitted to the medical floor inpatient for management of his throat pain and peritonsillar abscess. Diagnosis: Stroke: No - Discharge Data Discharge Date: 12/02/20 Discharge Disposition: Home, Self-Care 01 Condition: Good - Referral to Home Health Primary Care Physician: PCP None - Discharge Diagnosis/Problem(s) (1) Peritonsillar abscess SNOMED Code(s): 84993176 ICD Code: J36 - PERITONSILLAR ABSCESS Status: Acute Priority: High Current Visit: Yes (2) Current smoker SNOMED Code(s): 62207099 ICD Code: F17.200 - NICOTINE DEPENDENCE, UNSPECIFIED, UNCOMPLICATED Status: Chronic Priority: Medium Current Visit: Yes (3) GERD (gastroesophageal reflux disease) SNOMED Code(s): 818141933 ICD Code: K21.9 - GASTRO-ESOPHAGEAL REFLUX DISEASE WITHOUT ESOPHAGITIS Status: Chronic Priority: Low Current Visit: No Qualifiers: Esophagitis presence: esophagitis presence not specified Qualified Code(s): K21.9 - Gastro-esophageal reflux disease without esophagitis (4) History of malignant melanoma SNOMED Code(s): 159451033 ICD Code: Z85.820 - PERSONAL HISTORY OF MALIGNANT MELANOMA OF SKIN Status: Chronic Priority: Low Current Visit: No - Patient Instructions Diet: Regular Diet as Tolerated Activity: As Tolerated Driving: Do Not Drive - Discharge Plan *PRESCRIPTION DRUG MONITORING PROGRAM REVIEWED*: Not Applicable *COPY OF PRESCRIPTION DRUG MONITORING REPORT IN PATIENT ZEB: Not Applicable Prescriptions/Med Rec: Clindamycin HCl 450 mg PO Q8H 7 Days #65 capsule cephALEXin [Keflex] 500 mg PO Q8H 7 Days #21 cap amLODIPine [Norvasc] 2.5 mg PO DAILY 30 Days #30 tablet Acetaminophen [Tylenol] 650 mg PO Q8H 3 Days #20 capsule Home Medications: Home Meds Acetaminophen [Tylenol] 650 mg PO Q8H 3 Days #20 capsule 12/02/20 [Rx] Clindamycin HCl 450 mg PO Q8H 7 Days #65 capsule 12/02/20 [Rx] amLODIPine [Norvasc] 2.5 mg PO DAILY 30 Days #30 tablet 12/02/20 [Rx] cephALEXin [Keflex] 500 mg PO Q8H 7 Days #21 cap 12/02/20 [Rx] Oxygen Therapy Mode: Room Air Patient Handouts: Sepsis, Diagnosis, Adult, Peritonsillar Abscess, Steps to Quit Smoking Referrals: Valentina Ny MD [Ordering Only Provider] - (within one week) Domingo Engel MD [Ordering Only Provider] - (within one week) PCP,None [Primary Care Provider] - (Patient does not want to pick a Primary Care physcian at this time and will see who ever he needs to at walk in clinic, does not want appt. made. See pcp in 3 days) - Discharge Summary/Plan Comment DC Time >30 min.: Yes - Patient Data Vitals - Most Recent: Last Vital Signs Temp 36.8 C 12/02/20 08:23 Pulse 61 12/02/20 08:23 Resp 18 12/02/20 08:23 BP 142/90 H 12/02/20 08:50 Pulse Ox 97 12/02/20 08:23 Weight - Most Recent: 92.215 kg I&O - Last 24 hours: Intake & Output 12/01/20 12/02/20 12/02/20 22:59 06:59 14:59 Intake Total 1070 1404 Balance 1070 1404 Lab Results - Last 24 hrs: Laboratory Results - last 24 hr 12/02/20 12/02/20 12/02/20 Range/Units 05:55 05:55 05:55 WBC 6.34 (4.23-9.07) K/mm3 RBC 4.54 L (4.63-6.08) M/mm3 Hgb 15.0 (13.7-17.5) gm/dl Hct 45.2 (40.1-51.0) % MCV 99.6 H (79.0-92.2) fl MCH 33.0 H (25.7-32.2) pg MCHC 33.2 (32.2-35.5) g/dl RDW Std Deviation 44.8 H (35.1-43.9) fL Plt Count 245 (163-337) K/mm3 MPV 10.0 (9.4-12.3) fl Neut % (Auto) 55.6 (34.0-67.9) % Lymph % (Auto) 26.5 (21.8-53.1) % [place] % (Auto) 10.9 (5.3-12.2) % Eos % (Auto) 6.5 (0.8-7.0) Baso % (Auto) 0.3 (0.1-1.2) % Neut # (Auto) 3.53 (1.78-5.38) K/mm3 Lymph # (Auto) 1.68 (1.32-3.57) K/mm3 [place] # (Auto) 0.69 (0.30-0.82) K/mm3 Eos # (Auto) 0.41 (0.04-0.54) K/mm3 Baso # (Auto) 0.02 (0.01-0.08) K/mm3 Sodium 139 (136-145) mEq/L Potassium 3.6 (3.5-5.1) mEq/L Chloride 106 (98-107) mEq/L Carbon Dioxide 27 (21-32) mEq/L Anion Gap 9.6 (5-15) BUN 3 L (7-18) mg/dL Creatinine 0.9 (0.7-1.3) mg/dL Est Cr Clr Drug Dosing 94.52 mL/min Estimated GFR (MDRD) > 60 (>60) mL/min BUN/Creatinine Ratio 3.3 L (14-18) Glucose 138 H (74-106) mg/dL Calcium 8.4 L (8.5-10.1) mg/dL Magnesium 1.9 (1.8-2.4) mg/dl Total Bilirubin 0.3 (0.2-1.0) mg/dL AST 19 (15-37) U/L ALT 36 (16-63) U/L Alkaline Phosphatase 68 (46-116) U/L C-Reactive Protein 4.1 H* (<1.0) mg/dL Total Protein 6.2 L (6.4-8.2) g/dl Albumin 2.7 L (3.4-5.0) g/dl Globulin 3.5 gm/dL Albumin/Globulin Ratio 0.8 L (1-2) Med Orders - Current: Current Medications Amlodipine Besylate (Norvasc) 2.5 mg PO DAILY SEGUNDO Last Admin: 12/02/20 08:50 Dose: 2.5 mg Documented by: Benzocaine/Menthol (Cepacol Sore Throat) 1 lozenge MUCMEM Q2H PRN PRN Reason: Sore Throat Enoxaparin Sodium (Lovenox) 40 mg SUBCUT Q24H [facility] Last Admin: 12/01/20 15:55 Dose: 40 mg Documented by: Hydromorphone HCl (Dilaudid) 0.5 mg IVPUSH Q4H PRN PRN Reason: Pain Last Admin: 11/29/20 22:24 Dose: 0.5 mg Documented by: Clindamycin Phosphate 900 mg/ (Premix) 50 mls @ 100 mls/hr IV Q8H [facility] Last Admin: 12/02/20 08:48 Dose: 100 mls/hr Documented by: Ceftriaxone Sodium 1 gm/ (Sodium Chloride) 100 mls @ 200 mls/hr IV Q24H [facility] Last Admin: 12/02/20 00:39 Dose: 200 mls/hr Documented by: Lactated Ringer's (Ringers, Lactated) 1,000 mls @ 80 mls/hr IV ASDIRECTED [facility] Last Admin: 12/02/20 00:37 Dose: 80 mls/hr Documented by: Ibuprofen (Motrin) 400 mg PO Q6H PRN PRN Reason: Pain Ketorolac Tromethamine (Toradol) 30 mg IVPUSH Q6H PRN PRN Reason: Pain (moderate 4-6) Stop: 12/04/20 11:10 Last Admin: 11/30/20 23:03 Dose: 30 mg Documented by: Lidocaine HCl (Xylocaine 2% Viscous) 15 ml PO Q4HR PRN PRN Reason: Sore Throat Last Admin: 11/29/20 18:49 Dose: 15 ml Documented by: Miscellaneous Information (Remove Patch) 1 ea TRDERM DAILY [facility] Last Admin: 12/02/20 08:57 Dose: Not Given Documented by: Nicotine (Habitrol) 14 mg TRDERM DAILY [facility] Last Admin: 12/02/20 08:57 Dose: Not Given Documented by: Ondansetron HCl (Zofran) 4 mg IVPUSH Q6H PRN PRN Reason: Nausea Pantoprazole Sodium (Protonix) 40 mg PO ACBREAKFAST [facility] Last Admin: 12/02/20 06:53 Dose: 40 mg Documented by: Sodium Chloride (Saline Flush) 10 ml FLUSH ASDIRECTED PRN PRN Reason: Keep Vein Open Last Admin: 11/28/20 22:42 Dose: 10 ml Documented by: Sodium Chloride (Saline Flush) 10 ml FLUSH ONETIME PRN PRN Reason: IV FLUSH Last Admin: 12/01/20 15:44 Dose: 10 ml Documented by: Discontinued Medications Hydromorphone HCl (Dilaudid) 0.5 mg IVPUSH ONETIME ONE Stop: 11/28/20 23:42 Last Admin: 11/28/20 23:58 Dose: 0.5 mg Documented by: Sodium Chloride (Normal Saline) 1,000 mls @ 100 mls/hr IV NOW STA Stop: 11/29/20 09:37 Last Admin: 11/28/20 23:58 Dose: 100 mls/hr Documented by: Ceftriaxone Sodium 1 gm/ (Sodium Chloride) 100 mls @ 200 mls/hr IV ONETIME ONE Stop: 11/29/20 00:07 Last Admin: 11/29/20 00:02 Dose: 200 mls/hr Documented by: Lactated Ringer's (Ringers, Lactated) 1,000 mls @ 80 mls/hr IV ASDIRECTED [facility] Last Admin: 12/01/20 13:35 Dose: 150 mls/hr Documented by: Influenza Virus Vaccine (Pharmacy To Dose - Influenza Vaccine) 1 each IM ONETIME ONE Stop: 11/29/20 01:29 Influenza Virus Vaccine (Fluzone Quad [id number] Syringe) 60 mcg IM .ONCE ONE Stop: 11/29/20 01:31 Iopamidol (Isovue-300 (61%)) 100 ml IVPUSH ONETIME ONE Stop: 12/01/20 15:21 Last Admin: 12/01/20 15:44 Dose: 100 ml Documented by: Ketorolac Tromethamine (Toradol) 60 mg IM ONETIME ONE Stop: 11/28/20 22:27 Last Admin: 11/30/20 21:33 Dose: Not Given Documented by: Ketorolac Tromethamine (Toradol) 30 mg IVPUSH ONETIME ONE Stop: 11/28/20 22:31 Last Admin: 11/28/20 22:41 Dose: 30 mg Documented by: Nicotine (Habitrol) 21 mg TRDERM DAILY [facility] Last Admin: 11/29/20 10:32 Dose: Not Given Documented by:
== END 2020-12-02 11:46 | disposition home or self-care (01) | DRG 153 ==
LOC: JD.ED 22:14 → JD.MS 23:43
PROVIDERS: ADMIT Family Medicine; ATTEND Family Medicine
DX: J36 Peritonsillar abscess (principal); F17.200 Nicotine dependence, unspecified, uncomplicated; K21.9 Gastro-esophageal reflux disease without esophagitis; H54.7 Unspecified visual loss; Z20.822 Contact with and (suspected) exposure to COVID-19; Z71.6 Tobacco abuse counseling; Z85.820 Personal history of malignant melanoma of skin; Z23 Encounter for immunization
CPT/HCPCS: 36415; 70491; 70491-26; 80048; 80053; 83735; 85025; 86140; 87651-QW; 90686; 96374; 99221; 99231; 99233; 99239; 99284-25; 99285; A9270-GY; G0008; J0696; J1170; J1650; J1885; J3490; J7030; J7120; Q9967; U0002